=== PATIENT | male | born 1940 | race Caucasian/White ===

== ENCOUNTER 2019-03-27 06:33 | Emergency (ER) | payer OTHER ==
[~2019-03-27] VITALS: Ht 182.9 cm; Wt 90.7 kg
[~2019-03-27 06:33] MED LIST: ACET325 PO; ACET650SUP PR; ASPI325 PO; ASPI325EC PO; ASPI81CH PO; BP MED; CEFTRIAXONE 2 GM; CHLO25B PO; CHOL10002 PO; CHOLESTEROL MED; CITA20 PO; CLOB.05TC TP; CYAN1000 PO; Cerovite Silve1 EACH PO; DOCU100 PO; ENOX30I SUBQ; FERR160 PO; HTN MED; HYDACE5 PO; IBUP600 PO; LAVAP17G PO; LISI20 PO; LISI5 PO; LORA.5 PO; METO25 PO; METO25ER PO; MIRT15 PO; MULVITMINF; NICOTINE PATCH; PANT40 PO; POLY17UD PO; POTA10T PO; RXHYD5325 PO; SENN187 PO; SIMV10 PO; SIMV40 PO
[2019-03-27] MEDS ORDERED: LORA.5 PO (06:50)
[2019-03-27 06:58] LABS: BASOPHILS ABSOLUTE AUTO 0.01 K/mm3 (0.00-0.23); BASOPHILS PERCENT AUTO 0 % (0-2); EOSINOPHILS ABSOLUTE AUTO 0.02 K/mm3 (0.00-0.68); EOSINOPHILS PERCENT AUTO 0 % (0-6); Hematocrit 37.7 % (37.0-53.0); IMMATURE GRAN ABSOLUTE AUTO 0.01 K/mm3 (0.00-0.10); IMMATURE GRAN PERCENT AUTO 0 % (0-1); LYMPHOCYTES ABSOLUTE AUTO 1.22 K/mm3 (0.84-5.20); LYMPHOCYTES PERCENT AUTO 14 % (21-46); MONOCYTES ABSOLUTE AUTO 0.88 K/mm3 (0.16-1.47); MONOCYTES PERCENT AUTO 10 % (4-13); Mean Corpuscular HGB 31.6 pg (26.0-34.0); Mean Corpuscular HGB Conc 31.8 g/dL (31.5-36.5); Mean Corpuscular Volume 99 fL (80-100); NEUTROPHILS ABSOLUTE AUTO 6.64 K/mm3 (1.96-9.15); NEUTROPHILS PERCENT AUTO 76 % (41-73); Platelet Count 250 K/mm3 (150-400); RDW Coefficient Variation 12.8 % (11.7-14.2); RDW Standard Deviation 46.5 fL (35.1-46.3); White Blood Cell Count 8.78 K/mm3 (4.00-11.30)
[2019-03-27 07:20] LABS: Albumin, Blood 3.5 g/dL (3.4-5.0); Albumin/Globulin Ratio 0.9 (0.8-1.8); Bilirubin, Total 0.4 mg/dL (0.1-1.0); Bun/Creatinine Ratio 17.4 (12.0-20.0); Calcium, Blood 8.4 mg/dL (8.5-10.1); Creatinine, Blood 1.38 mg/dL (0.60-1.20); Globulin, Blood 3.8 g/dL (2.2-4.0); Potassium, Blood 4.6 mmol/L (3.5-5.5); Total Protein, Blood 7.3 g/dL (6.4-8.2)
== END 2019-03-27 11:37 | disposition short-term general hospital (02) ==
LOC: ER 06:33
PROVIDERS: Emergency Medicine
DX: R33.9 Retention of urine, unspecified (principal); R31.9 Hematuria, unspecified; Z88.8 Allergy status to other drugs, medicaments and biological substances; Z88.6 Allergy status to analgesic agent; Z88.1 Allergy status to other antibiotic agents; Z88.2 Allergy status to sulfonamides; Z79.899 Other long term (current) drug therapy
CPT/HCPCS: 51701; 51702; 51703; 51798; 71046; 80053; 85025; 94640; 96360-59; 99285-25; J7030

== ENCOUNTER 2019-03-27 15:47 | Emergency (ER) | payer OTHER ==
[~2019-03-27] VITALS: Ht 182.9 cm; Wt 90.7 kg
== END 2019-03-27 17:02 | disposition home or self-care (01) ==
LOC: ER 15:47
DX: R33.9 Retention of urine, unspecified (principal); R31.9 Hematuria, unspecified; Z88.8 Allergy status to other drugs, medicaments and biological substances; Z88.6 Allergy status to analgesic agent; Z88.1 Allergy status to other antibiotic agents; Z88.2 Allergy status to sulfonamides; Z79.899 Other long term (current) drug therapy; I10 Essential (primary) hypertension; Z86.73 Personal history of transient ischemic attack (TIA), and cerebral infarction without residual deficits; Z87.891 Personal history of nicotine dependence
CPT/HCPCS: 99282

== ENCOUNTER 2019-04-03 21:05 | Emergency (ER) | payer OTHER ==
[~2019-04-03] VITALS: Ht 182.9 cm; Wt 81.7 kg
[2019-04-03 21:33] LABS: Source, Urine Catheter
[2019-04-03 21:37] LABS: BASOPHILS ABSOLUTE AUTO 0.03 K/mm3 (0.00-0.23); BASOPHILS PERCENT AUTO 0 % (0-2); EOSINOPHILS ABSOLUTE AUTO 0.21 K/mm3 (0.00-0.68); EOSINOPHILS PERCENT AUTO 2 % (0-6); Hematocrit 34.1 % (37.0-53.0); Hemoglobin 10.6 g/dL (13.5-17.5); IMMATURE GRAN ABSOLUTE AUTO 0.09 K/mm3 (0.00-0.10); IMMATURE GRAN PERCENT AUTO 1 % (0-1); LYMPHOCYTES ABSOLUTE AUTO 2.24 K/mm3 (0.84-5.20); LYMPHOCYTES PERCENT AUTO 17 % (21-46); MONOCYTES ABSOLUTE AUTO 1.28 K/mm3 (0.16-1.47); MONOCYTES PERCENT AUTO 10 % (4-13); Mean Corpuscular HGB Conc 31.1 g/dL (31.5-36.5); Mean Corpuscular Volume 103 fL (80-100); Mean Platelet Volume 9.9 fL (9.1-12.4); NEUTROPHILS ABSOLUTE AUTO 9.48 K/mm3 (1.96-9.15); NEUTROPHILS PERCENT AUTO 71 % (41-73); Platelet Count 366 K/mm3 (150-400); RDW Coefficient Variation 12.6 % (11.7-14.2); RDW Standard Deviation 48.2 fL (35.1-46.3); Red Blood Cell Count 3.31 M/mm3 (4.30-5.90); White Blood Cell Count 13.33 K/mm3 (4.00-11.30)
[2019-04-03 21:38] LABS: Appearance, Urine Cloudy (Clear); Blood, Urine 5+ (Neg); Color, Urine Amber (P-Yellow); Glucose Qualitative, Urine Neg (Neg); Ketones, Urine 1+ (Neg); Leukocyte Esterase, Urine 3+ (Neg); Nitrite, Urine Pos (Neg); Protein, Urine 4+ (Neg); Specific Gravity, Urine 1.015 (1.003-1.022); Urobilinogen, Urine 1+ (Normal)
[2019-04-03 21:45] LABS: Bilirubin, Urine 1+ (Neg)
[2019-04-03 21:47] LABS: Bacteria Many /hpf; Red Blood Cells, Urine TNTC /hpf (0-2); Squamous Epithelial Cells Not Seen /hpf (Few); White Blood Cells, Urine TNTC /hpf (0-5)
[2019-04-03 21:57] LABS: Albumin, Blood 2.9 g/dL (3.4-5.0); Albumin/Globulin Ratio 0.6 (0.8-1.8); Bilirubin, Total 0.2 mg/dL (0.1-1.0); Bun/Creatinine Ratio 32.3 (12.0-20.0); Calcium, Blood 8.4 mg/dL (8.5-10.1); Creatinine, Blood 1.55 mg/dL (0.60-1.20); Globulin, Blood 4.6 g/dL (2.2-4.0); Potassium, Blood 4.5 mmol/L (3.5-5.5); Total Protein, Blood 7.5 g/dL (6.4-8.2)
[2019-04-03] MEDS ORDERED: LEVFLO500 PO (22:35)
== END 2019-04-03 23:55 | disposition home or self-care (01) ==
LOC: ER 21:05
PROVIDERS: Emergency Medicine
DX: T83.511A Infection and inflammatory reaction due to indwelling urethral catheter, initial encounter (principal); N39.0 Urinary tract infection, site not specified; I10 Essential (primary) hypertension; Z86.73 Personal history of transient ischemic attack (TIA), and cerebral infarction without residual deficits; Z87.891 Personal history of nicotine dependence; Z88.8 Allergy status to other drugs, medicaments and biological substances; Z88.2 Allergy status to sulfonamides; Z88.1 Allergy status to other antibiotic agents; Z88.6 Allergy status to analgesic agent; Z79.899 Other long term (current) drug therapy
CPT/HCPCS: 80053; 81001; 85025; 87077; 87086; 87186; 96365; 99283-25; J1956

== ENCOUNTER 2019-04-25 17:34 | Emergency (ER) | payer OTHER ==
[~2019-04-25] VITALS: Ht 182.9 cm; Wt 86.2 kg
[~2019-04-25 17:34] MED LIST changes: +LEVFLO500 PO
[2019-04-25] MEDS ORDERED: ACET500 PO (18:18)
== END 2019-04-25 19:36 | disposition home or self-care (01) ==
LOC: ER 17:34
DX: T83.021A Displacement of indwelling urethral catheter, initial encounter (principal); Z88.1 Allergy status to other antibiotic agents; Z88.8 Allergy status to other drugs, medicaments and biological substances; Z88.2 Allergy status to sulfonamides; Z79.899 Other long term (current) drug therapy; D64.9 Anemia, unspecified; J44.9 Chronic obstructive pulmonary disease, unspecified; Z86.73 Personal history of transient ischemic attack (TIA), and cerebral infarction without residual deficits; E78.5 Hyperlipidemia, unspecified; I10 Essential (primary) hypertension; F32.9 Major depressive disorder, single episode, unspecified; Z87.891 Personal history of nicotine dependence
CPT/HCPCS: 51702; 99283

== ENCOUNTER 2019-09-17 21:23 | Inpatient (IN) | payer OTHER ==
[~2019-09-17] VITALS: Ht 180.3 cm; Wt 84.3 kg
[~2019-09-17 21:23] MED LIST changes: +ACET500 PO
[2019-09-17] MEDS ORDERED: BENADRYL25 MG PO (21:57)
[2019-09-17 22:48] LABS: BASOPHILS ABSOLUTE AUTO 0.02 K/mm3 (0.00-0.23); BASOPHILS PERCENT AUTO 0 % (0-2); EOSINOPHILS PERCENT AUTO 3 % (0-6); Hemoglobin 11.1 g/dL (13.5-17.5); IMMATURE GRAN ABSOLUTE AUTO 0.02 K/mm3 (0.00-0.10); IMMATURE GRAN PERCENT AUTO 0 % (0-1); LYMPHOCYTES ABSOLUTE AUTO 3.84 K/mm3 (0.84-5.20); LYMPHOCYTES PERCENT AUTO 40 % (21-46); MONOCYTES ABSOLUTE AUTO 0.87 K/mm3 (0.16-1.47); MONOCYTES PERCENT AUTO 9 % (4-13); Mean Corpuscular HGB 31.4 pg (26.0-34.0); Mean Corpuscular HGB Conc 30.8 g/dL (31.5-36.5); Mean Corpuscular Volume 102 fL (80-100); NEUTROPHILS ABSOLUTE AUTO 4.49 K/mm3 (1.96-9.15); NEUTROPHILS PERCENT AUTO 47 % (41-73); Platelet Count 314 K/mm3 (150-400); RDW Standard Deviation 48.1 fL (35.1-46.3); Red Blood Cell Count 3.53 M/mm3 (4.30-5.90); White Blood Cell Count 9.54 K/mm3 (4.00-11.30)
[2019-09-17 23:02] LABS: Acetaminophen, Random <2.0 ug/mL (10.0-30.0); Alanine Aminotransfer (ALT/SGP 25 U/L (12-78); Albumin, Blood 3.1 g/dL (3.4-5.0); Albumin/Globulin Ratio 0.8 (0.8-1.8); Alk Phos 107 U/L (50-136); Anion Gap 4 mmol/L (6-16); Aspartate Aminotrans (AST/SGOT 13 U/L (12-37); Bilirubin, Total 0.2 mg/dL (0.1-1.0); Blood Urea Nitrogen 34 mg/dL (8-24); CO2, Blood 25 mmol/L (21-32); Calcium, Blood 8.4 mg/dL (8.5-10.1); Chloride, Blood 113 mmol/L (98-108); Creatinine, Blood 1.48 mg/dL (0.60-1.20); Globulin, Blood 3.9 g/dL (2.2-4.0); Glomerular Filtration Rate 49 (60-); Glucose, Blood 113 mg/dL (70-99); Magnesium, Blood 1.8 mg/dL (1.6-2.4); Potassium, Blood 5.2 mmol/L (3.5-5.5); Salicylate <1.7 mg/dL (2.8-20.0); Sodium, Blood 142 mmol/L (136-145); Troponin I <0.015 ng/mL (0.000-0.040)
[2019-09-17 23:03] LABS: Ethanol (Alcohol), Blood, Med <3 mg/dL
[2019-09-17 23:05] LABS: Calcium, Ionized (POC) 1.14 mmol/L (1.10-1.46); Chloride (POC) 108 mmol/L (98-108); Creatinine (POC) 1.7 mg/dL (0.8-1.3); Glucose (ISTAT POC) 128 mg/dL (70-99); Hemoglobin (POC) 9.9 g/dL (13.5-17.5); Potassium (POC) 4.9 mmol/L (3.5-5.5); Sodium (POC) 141 mmol/L (135-148); Total CO2 (POC) 24 mmol/L (21-32)
[2019-09-17 23:42] LABS: PCO2 Arterial 39.5 mmHg (35-45); PO2 Arterial 88.3 mmHg (80-100); pH Blood Arterial 7.37 (7.35-7.45)
[2019-09-17 23:48] LABS: Source, Urine Clean Catch
[2019-09-17 23:51] LABS: Appearance, Urine Cloudy (Clear); Bilirubin, Urine Neg (Neg); Blood, Urine 4+ (Neg); Color, Urine Yellow (P-Yellow); Glucose Qualitative, Urine Neg (Neg); Ketones, Urine Neg (Neg); Leukocyte Esterase, Urine 3+ (Neg); Nitrite, Urine Neg (Neg); Protein, Urine 3+ (Neg); Urobilinogen, Urine NORM (Normal)
[2019-09-17 23:58] LABS: Bacteria Many /hpf; Red Blood Cells, Urine 0-2 /hpf (0-2); Squamous Epithelial Cells Not Seen /hpf (Few); White Blood Cells, Urine TNTC /hpf (0-5)
[2019-09-18 00:08] LABS: U Amphetamine Screen Not Detected; U Barbituate Screen Not Detected; U Benzodiazapine Screen Not Detected; U Buprenorphine Screen Not Detected; U Cannabinoids Screen Not Detected; U Cocaine Screen Not Detected; U Methadone Screen Not Detected; U Methamphetamine Screen Not Detected; U Opiates Screen Not Detected; U Oxycodone Screen Not Detected; U Phencyclidine Screen Not Detected; U Propoxyphene Screen Not Detected
[2019-09-18] MEDS ORDERED: G-FENESIN400 MG PO (03:00)
--- NOTE | 2019-09-18 03:00 | NUR ---
PT TO ICU 12 FROM ED AT 0035 . PT ARRIVED VENTED WITH VENT SETTINGS AC 16/450/5/30%. PT IS REQUIRING NO SEDATION AND IS UNRESPONSIVE TO VERBAL OR PAINFUL STIMULI AT THIS TIME, PUPILS 1 MM WITH BRISK RESPONSE. PT APPEARS FLACCID, SMELLS STRONGLY OF URINE, AND HAS PRESSURE ULCER ON BUTTOCKS/COCCYX AND ABRASION TO RIGHT BUTTOCK (SEE PICTURES IN CHART), ADDITIONAL SCABS LOCATED BILATERAL UPPER THIGHT. PT HYPOTENSIVE ON ARRIVAL. 3 OF 3 L LR BOLUS STARTED. FINANCE CONSULTANT CONSULTED FOR CENTRAL LINE PLACEMENT AND PRESSOR SUPPORT. DR. HICKS AT BEDSIDE AT [address] RIGHT IJ CENTRAL LINE. LEVOPHED STARTED AT 10 MCG/MIN, ORDER TO BEGIN VASOPRESSIN NEEDED. GOAL TO MAINTAIN MAP>65. CALL PLACED TO [facility] REGARDING PT'S POLST OR ADVANCED DIRECTIVE. PER HEATING REPAIR TECHNICIAN "DELBERT", "HARD COPY OF ADVANCED DIRECTIVE WAS GIVEN TO EMS AND THEY ARE NO LONGER ABLE TO LOCATE IT". FACILITY CONFIRMS PT IS DNR STATUS BUT IS UNABLE TO FAX DOCUMENTATION TO SUPPORT CODE STATUS. PER DR. HICKS, PT WILL BE CHANGED TO DNR STATUS FOLLOWING RECEIPT OF ADVANCED DIRECTIVE/POLST. [facility] M[facility] STATES THAT MAILING MACHINE ASSISTANT CONTACTED PT'S FAMILY AND THEY WERE UPDATED REGARDING SITUATION, PT'S STATUS AND TRANSPORT TO [facility]. PT HYPOTHERMIC ON ARRIVAL WITH CORE TEMP OF 95.3, AJ HUGGER PLACED ON PATIENT WELL WARM BLANKETS TO INCREASE TEMP. TEMP ROJAS IN PLACE DRAINING TURBID URINE. SEE FULL ADMISSION ASSESSMENT
[2019-09-18] MEDS ORDERED: HYDCOR2.5C PR (03:02)
[2019-09-18] MEDS ORDERED: Anti-Diarrheal2 MG PO (03:04)
[2019-09-18] MEDS ORDERED: MILK OF MA400 MG/5 M PO (03:04)
[2019-09-18] MEDS ORDERED: Pedi-Dri 100,0060 GM TOP (03:08)
[2019-09-18] MEDS ORDERED: BISM87SU PO (03:11)
[2019-09-18 03:57] LABS: BASOPHILS ABSOLUTE AUTO 0.02 K/mm3 (0.00-0.23); BASOPHILS PERCENT AUTO 0 % (0-2); EOSINOPHILS ABSOLUTE AUTO 0.06 K/mm3 (0.00-0.68); EOSINOPHILS PERCENT AUTO 1 % (0-6); Hematocrit 31.2 % (37.0-53.0); Hemoglobin 9.7 g/dL (13.5-17.5); IMMATURE GRAN ABSOLUTE AUTO 0.03 K/mm3 (0.00-0.10); IMMATURE GRAN PERCENT AUTO 0 % (0-1); LYMPHOCYTES ABSOLUTE AUTO 2.09 K/mm3 (0.84-5.20); LYMPHOCYTES PERCENT AUTO 17 % (21-46); MONOCYTES ABSOLUTE AUTO 0.81 K/mm3 (0.16-1.47); MONOCYTES PERCENT AUTO 7 % (4-13); Mean Corpuscular HGB 31.6 pg (26.0-34.0); Mean Corpuscular HGB Conc 31.1 g/dL (31.5-36.5); Mean Corpuscular Volume 102 fL (80-100); Mean Platelet Volume 9.3 fL (9.1-12.4); NEUTROPHILS PERCENT AUTO 75 % (41-73); Platelet Count 287 K/mm3 (150-400); RDW Standard Deviation 49.1 fL (35.1-46.3); Red Blood Cell Count 3.07 M/mm3 (4.30-5.90); White Blood Cell Count 12.01 K/mm3 (4.00-11.30)
[2019-09-18 04:11] LABS: Bun/Creatinine Ratio 21.6 (12.0-20.0); Calcium, Blood 7.7 mg/dL (8.5-10.1); Creatinine, Blood 1.53 mg/dL (0.60-1.20); Potassium, Blood 5.1 mmol/L (3.5-5.5)
--- NOTE | 2019-09-18 06:12 | NUR ---
SHIFT SUMMARY PT REMAINS ON VENT SETTINGS AC 16/450/5/30%. LEVOPHED AT 10 MCG/MIN AND VASOPRESSIN @ 0.04 UNITS/MIN. PT RESPONDS TO PAINFUL STIMULI WITH FACIAL GRIMACING BUT FAILS TO OPEN EYES OR FOLLOW COMMANDS. PROPOFOL STARTED @ 25 MCG/KG/MIN D/T PT ALARMING VENT. PT NSR-SIT WITH HR 80-130'S. POISON CONTROL CALLED FOR UPDATE, SUGGEST SUPPORTIVE CARE AND WILL CONTINUE TO FOLLOW UP ON PT'S PROGRESS. AJ HUGGER TURNED OFF PT'S TEMP CURRENTLY 98.9. 300 ML TURBID URINARY OUTPUT. PLEASE SEE ADMISSION NOTE. WILL REPORT TO [facility] NURSE.
--- NOTE | 2019-09-18 07:30 | NUR ---
ASSUMED CARE: REPORT RECEIVED FROM RUIZ Ozuna RN. ASSUMED CARE OF THIS PT AT APPROX 0700. ON ASSESSMENT, THE PT IS INTUBATED & SEDATED W/ PROPOFOL. HE WITHDRAWS/ GRIMACES TO PAINFUL STIMULI BUT IS OTHERWISE NOT PURPOSEFUL IN MOVEMENTS. BILAT SOFT WRIST RESTRAINTS REMAIN IN PLACE TO PREVENT ACCIDENTAL SELF-EXTUBATION. PUPILS 1MM & MINIMALLY RESPONSIVE TO LIGHT. LS ARE CLEAR T/O, PT ON VENTILATOR W/ SETTINGS: AC 16, TV 450, PEEP 5 & FIO2 30%. O2 SATS > 92%. MONITOR SHOWS NSR W/ HR 70s, VASOPRESSIN & LEVOPHED FOR BP CONTROL, TITRATION OF MEDS IN FLOWSHEET. ABD MILDLY DISTENDED BUT SOFT, NO GRIMACE TO PALPATION, OGT IN PLACE & CLAMPED. TEMP ROJAS PATENT/ DRAINING YELLOW TURBID URINE. PT's TEMPERATURE NOW MORE STABLE, AJ HUGGER REMOVED & TEMP MAINTAINING 97.2-97.5. SKIN OVERALL INTACT, WOUNDS DOCUMENTED IN ASSESSMENT, MEPILEX TO COCCYX. WILL CONTINUE TO MONITOR & UPDATE NEEDED.
--- NOTE | 2019-09-18 08:57 | NUR ---
POISON CENTER: CALL FROM DESMOND AT POISON CENTER. UPDATED VS & MED REGIMEN HAVE BEEN PROVIDED. SHE STS TO CONTINUE W/ CURRENT POC & MONITOR FOR WIDENING QRS.
--- NOTE | 2019-09-18 09:25 | NUR ---
FAMILY UPDATE: CALL FROM SERAFIN WASHINGTON, WHO IS ONE OF PT's EMERGENCY CONTACTS ON PAPERWORK FROM [facility]. SHE STS THAT THE LAST UPDATE SHE RECEIVED WAS THAT THE PT HAD BEEN TRANSPORTED TO THE ED FROM [facility] AFTER INGESTING THE INCORRECT PT's MEDICATIONS. UPDATED HER ON PT's CURRENT STATUS, MEDS THAT PT RECEIVED IN ERROR AT [facility] & POSSIBLE SIDE EFFECTS OF THOSE MEDS. SHE STS THAT SOMEONE ELSE FROM THEIR FAMILY WILL BE IN LATER TODAY TO SEE THE PT. WILL CONTINUE TO MONITOR & UPDATE NEEDED.
--- NOTE | 2019-09-18 10:10 | NUR ---
DR COOPER: PROVIDER AT BEDSIDE TO EVAL PT. STS CONTINUE CURRENT POC W/ ANTICIPATION THAT ONCE MEDS HAVE WORN OFF, PT WILL BE MORE AWAKE & MAY BE EXTUBATED. TITRATE PRESSORS DOWN ABLE. NO OTHER CHANGES AT THIS TIME. WILL CONTINUE TO MONITOR & UPDATE NEEDED.
--- NOTE | 2019-09-18 12:33 | NUR ---
CUFF LEAK: CUFF LEAK NOTED ON NOON REASSESSMENT. O2 SATS > 95%, ETT POSITION UNCHANGED, BILAT BREATH SOUNDS AUSCULTATED. TV < 450 NOTED & VENT NOW ALARMING. LEEANNA Rodriguez RT, NOTIFIED OF THIS & 2 CC AIR ADDED TO ETT CUGG. LEAK RESOLVED & TV > 450 AGAIN.
--- NOTE | 2019-09-18 16:21 | NUR ---
SHIFT SUMMARY: PT MORE AWAKE THIS AFTERNOON, ATTEMPTS TO OPEN EYES IN RESPONSE TO HIS NAME BEING SAID. HE IS MOVING R SIDE MORE NOW, L SIDE WEAKNESS AT BASELINE R/T HX CVA. HE IS NOT CURRENTLY FOLLOWING DIRECTION, BUT APPEARS MORE PURPOSEFUL IN MOVEMENT, REACHING TOWARD THE ETT WHEN RESTRAINT REMOVED FROM R WRIST. LS REMAIN CLEAR T/O, VENT SETTINGS: AC12, TV 450, PEEP 5 & FIO2 25%, O2 SATS > 95%. MONITOR SHOWS SR W/ HR 70s. BP MORE STABLE, REQUIRING LESS LEVOPHED, VASOPRESSIN PLACED ON STANDBY AT APPROX 1420. OGT REMAINS CLAMPED, TEMP ROJAS PATENT/ DRAINING YELLOW, TURBID URINE. SKIN UNCHANGED, Q2H REPOSITIONING TO MAINTAIN SKIN INTEGRITY. WILL CONTINUE TO MONITOR & REPORT OFF TO ONCOMING RN.
--- NOTE | 2019-09-18 20:17 | NUR ---
ASSUMED CARE OF PT, REPORT RCV'D FROM MIRTA Almonte RN. PT INTUBATED AND SEDATED. VENT SETTINGS AC 16/450/5/25%. PROPOFOL INFUSING AT 25 MCG/KG/MIN, PT SEDATED BUT RESPONSIVE TO PAINFUL STIMULI. PT EXHIBITS FACIAL GRIMACING, MOVED RIGHT HAND AND RIGHT FOOT BUT FAILS TO FOLLOW COMMANDS. PT HAS LEFT SIDED UPPER/LOWER DEFICITS D/T HX OF CVA. LEFT HAND CONTRACTED AND LEFT ARM STIFF. OGT CLAMPED. TEMP ROJAS PATENT DRAINING TURBID YELLOW URINE. SCANT AMOUNT OF BLOOD NOTICED AROUND THE MEATUS, CATH CARE PERFORMED. LEPHOPHED INFUSING AT 4 MCG/MIN TO MAINTAIN MAP>65, VASOPRESSIN ON STANDBY. SEE FULL SHIFT ASSESSMENT.
[2019-09-19 03:44] LABS: BASOPHILS ABSOLUTE AUTO 0.02 K/mm3 (0.00-0.23); BASOPHILS PERCENT AUTO 0 % (0-2); EOSINOPHILS ABSOLUTE AUTO 0.13 K/mm3 (0.00-0.68); EOSINOPHILS PERCENT AUTO 1 % (0-6); Hematocrit 30.4 % (37.0-53.0); Hemoglobin 9.5 g/dL (13.5-17.5); IMMATURE GRAN ABSOLUTE AUTO 0.02 K/mm3 (0.00-0.10); IMMATURE GRAN PERCENT AUTO 0 % (0-1); LYMPHOCYTES ABSOLUTE AUTO 2.43 K/mm3 (0.84-5.20); LYMPHOCYTES PERCENT AUTO 23 % (21-46); MONOCYTES ABSOLUTE AUTO 1.05 K/mm3 (0.16-1.47); MONOCYTES PERCENT AUTO 10 % (4-13); Mean Corpuscular HGB 31.7 pg (26.0-34.0); Mean Corpuscular HGB Conc 31.3 g/dL (31.5-36.5); Mean Corpuscular Volume 101 fL (80-100); Mean Platelet Volume 9.5 fL (9.1-12.4); NEUTROPHILS ABSOLUTE AUTO 6.97 K/mm3 (1.96-9.15); NEUTROPHILS PERCENT AUTO 66 % (41-73); Platelet Count 285 K/mm3 (150-400); RDW Coefficient Variation 13.2 % (11.7-14.2); RDW Standard Deviation 48.6 fL (35.1-46.3); White Blood Cell Count 10.62 K/mm3 (4.00-11.30)
[2019-09-19 03:58] LABS: Bun/Creatinine Ratio 18.9 (12.0-20.0); Calcium, Blood 8.1 mg/dL (8.5-10.1); Creatinine, Blood 1.75 mg/dL (0.60-1.20); Potassium, Blood 4.8 mmol/L (3.5-5.5)
--- NOTE | 2019-09-19 06:03 | NUR ---
SHIFT SUMMARY PT REMAINS INTUBATED WITH VENT SETTINGS AC 16/450/5/25%. SEDATED WITH PROPOFOL 15 MCG/KG/MIN. LEVOPHED CURRENTLY AT 4 MCG/MIN, ATTEMPTS TO TITRATE LEVOPHED DOWN RESULTED IN HYPOTENSION. WHILE SEDATED PT RESPONDED TO NOXIOUS STIMULI WITH FACIAL GRIMACE ONLY. PT PLACED ON SEDATION VACATION FROM [id number]. DURING THIS TIME LEVOPHED WAS PLACED ON STANDBY AND PT WAS ABLE TO MAINTAIN MAP>65. OFF OF SEDATION PT STILL FAILED TO FOLLOW COMMANDS, KNOWING PT'S EXTENSIVE NEUROLOGIC HX IT IS UNKNOWN WHAT PT'S BASELINE COGNITION AT THIS TIME. PT MOVES RIGHT UPPER/LOWER EXTREMETIES AND APPEARS TO TRY TO REACH FOR THE TUBE. WHEN ASKED TO SQUEEZE RIGHT HAND PT FAILS TO PURPOSEFULLY DO SO. PROPOFOL DOSAGE DECREASED FROM 25 MCG/KG/MIN TO 15 MCG/KG/MIN. PT HAS MODERATE AMOUNT OF THICK YELLOW/WHITE SPUTUM SUCTIONED FROM ETT. PT HAS STRONG PRODUCTIVE COUGH. URINE REMAINS TURBID WITH COPIOUS AMOUNTS OF SEDIMENT. PT HAD 750 ML URINARY OUTPUT THIS SHIFT. [facility]
--- NOTE | 2019-09-19 07:43 | NUR ---
ASSUMED CARE / SEDATION VACATION: REPORT RECEIVED FROM RUIZ Ozuna RN. ASSUMED CARE OF THIS PT AT APPROX 0700. ON ASSESSMENT, THE PT IS RESTING QUIETLY & SEDATED W/ PROPOFOL. HE ATTEMPTS TO OPEN EYES IN RESPONSE TO HIS NAME BEING SAID & IS PURPOSEFUL W/ MOVEMENTS, PULLING AT RESTRAINTS & REACHING FOR ETT WHEN UNRESTRAINED. R SIDE MOVING MORE THAN L SIDE EXTREMITIES, WHICH IS BASELINE FOR PT. LS ARE CLEAR T/O, VENT SETTINGS: AC 16, TV 450, PEEP 5 & FIO2 25%. PT HAS STRONG COUGH W/ MOD AMNTS THICK WHITE SPUTUM SUCTIONED FROM ETT. MONITOR SHOWS SR W/ HR 80s. BP STABLE W/ LEVOPHED TITRATION IN FLOWSHEET. OGT CLAMPED, TEMP ROJAS PATENT/ DRAINING TURBID YELLOW URINE. SEDATION VACATION STARTED AT 0720 W/ PROPOFOL ON STANDBY. VENT SETTINGS CHANGED TO SPONTANEOUS W/ PS 5, FIO2 25%. PT TOLERATING WELL W/ RR 13-16 & TV > 450. HE IS CURRENTLY CALM, OPENING EYES & FOLLOWING SOME DIRECTION, UNSURE OF BASELINE MENTATION R/T HX CVA. WILL CONTINUE TO MONITOR & UPDATE NEEDED.
--- NOTE | 2019-09-19 10:10 | NUR ---
DR CONKLIN: PROVIDER AT BEDSIDE TO EVAL PT. INFORMED HER OF PT's IMPROVED MENTATION & POSSIBILITY OF EXTUBATION TODAY. CONTINUE POC PER CLIPPER MACHINE, NO CHANGES. WILL CONTINUE TO MONITOR & UPDATE NEEDED.
--- NOTE | 2019-09-19 12:27 | NUR ---
EXTUBATION: PT EXTUBATED AT 1130 TO RA. HE IS TOLERATING THIS WELL W/ O2 SATS > 92%. AT BASELINE, PT IS QUIET, MOSTLY NONVERBAL & STOIC, PER REPORT OF NURSE AT [facility] THIS AM. HE IS CURRENTLY QUIET & ANSWERING YES/NO QUESTIONS W/ NODS.
--- NOTE | 2019-09-19 16:01 | NUR ---
ASSUMED CARE: RECEIVED REPORT FROM MIRTA BAJWA RN AT THIS TIME. PT IS NOW PCU STATUS AND CODE STATUS OF DNR. OT IS WORKING WITH THE PT AT THIS TIME. WILL CONTINUE TO MONITOR AND ASSESS FURTHER.
--- NOTE | 2019-09-19 17:45 | NUR ---
TRANSFERED TO PCU 2: PT TRANSFERED TO PCU AT THIS TIME. NO ACUTE DISTRESS NOTED. CENTRAL LINE WAS REMOVED AND NO S/S OF BLEEDING NOTED AT OR AROUND THE SITE. TRANSFERED TO PCU BED WITH 4 STAFF MEMBERS.
--- NOTE | 2019-09-19 18:00 | NUR ---
ASSUMED CARE PT ALERT TO SELF. PT NOT ANSWERING QUESTIONS AND MUMBLES. PER REPORT PT IS AT HIS BASELINE MENTATION. VS STABLE. HR NSR. O2 SATS REMAIN ABOVE 90% ON RA. BED ALARM ON. ROJAS PATENT AND DRAINING. WILL CONTINUE TO MONITOR AND REPORT TO ONCOMING RN.
--- NOTE | 2019-09-20 01:31 | NUR ---
09/19/191944 HS CARE GIVEN; FRESH ATTENDS APPLIED AND ROJAS CATHETER BAG CHANGED AND STRUNG THRU PANTS THAT WERE APPLIED TO PATIENT (SO THAT PATIENT WOULD NOT ATTEMPT TO REMOVE ROJAS CATHETER; ROJAS DRAINING DARK YELLOW FLUID WITH SEDIMENT; ALERT TO PERSON, SPEECH GARBLED AT TIMES, THOUGHT PROCESS DISORGANIZED
[2019-09-20 04:30] LABS: Albumin, Blood 2.6 g/dL (3.4-5.0); Anion Gap 5 mmol/L (6-16); Blood Urea Nitrogen 24 mg/dL (8-24); Bun/Creatinine Ratio 16.9 (12.0-20.0); CO2, Blood 25 mmol/L (21-32); Calcium, Blood 8.3 mg/dL (8.5-10.1); Chloride, Blood 112 mmol/L (98-108); Creatinine, Blood 1.42 mg/dL (0.60-1.20); Glomerular Filtration Rate 51 (60-); Glucose, Blood 81 mg/dL (70-99); Phosphorus, Blood 2.9 mg/dL (2.5-4.9); Potassium, Blood 4.2 mmol/L (3.5-5.5); Sodium, Blood 142 mmol/L (136-145)
--- NOTE | 2019-09-20 04:35 | NUR ---
SHIFT SUMMARY: 79 Y/O MALE RESTED COMFORTABLY ALL SHIFT; RESPOSITIONED EVERY 2 HOURS; ROJAS DRAINING CLOUDY YELLOW FLUID WITH SEDIMENT; WEARING ATTENDS DIAPERS; LEFT ARM/LEG FLACCID; ALERT TO PERSON ONLY, SPEECH GARBLED WITH THOUGHT PROCESS DISORGANIZED; PT REQUIRES ASSISTANCE WITH ALL ADLS; VITAL SIGNS STABLE; NO PAIN, NAUSEA OR SOB NOTED; SKIN WARM AND PINK; LUNG SOUNDS CLEAR THROUGHOUT; DNR STATUS; CONTACT PRECAUTIONS FOR ESBL IN URINE; PT COOPERATIVE WITH ALL CARE RENDERED BY NURSING STAFF; BED ALARM APPLIED, BED LOW POSITION WITH CALL LIGHT AT SIDE.
--- NOTE | 2019-09-20 11:46 | NUR ---
Spiritual care visit conducted. Patient is lying in bed and resting but quickly awakens to the sound of his name. Communication with patient is challenging, but patient is able to tell me that he is doing, "Okay" and to affirm with "Yes" when I asked patient if I could pray for him. He closed his eyes during the prayer and repeated, "Amen" at the conclusion of the prayer. I sat with patient for 10 minutes or so to provide a calming presence. I will continue to remain available to patient and family.
--- NOTE | 2019-09-20 13:04 | NUR ---
UPDATE PT ALERT TO SELF. PT ANSWERING YES OR NO TO QUESTIONS, BUT UNABLE TO UNDERSTAND ANY OTHER WORDS. VS STABLE. O2 SATS REMAIN ABOVE 90% ON RA. BP STABLE. HR NSR. DR. CONKLIN IN WITH ORDERS TO REMOVE ROJAS AND DISCHARGE BACK TO [facility]. REPORT CALLED TO [facility]. DISCHARGE FAXED. TRANSPORT TO BE HERE AT 1400 TO TAKE PT.
[2019-09-20] MEDS ORDERED: Vsl#3 Capsule1 EACH PO (13:26)
[2019-09-20] MEDS ORDERED: LEVO750 PO (13:27)
--- NOTE | 2019-09-20 14:34 | NUR ---
Discussed with child care attendant school, Xiomy. She states that she has spoken with the family. She does not believe this pt to be appropriate for hospice care at this time. Pt does have a comfort measures only POLST in place, but was intubated due to accidental overdose of medications at [facility]. Pt is going back to [facility], however, family may be wanting to get him placed somewhere else. Pt has prior stroke and dementia. 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 If pt returns to hospital, reevaluation for hospice care. Has chronic, indwelling gil catheter with increased visits to ER in the last 6 months.
== END 2019-09-20 14:08 | disposition home or self-care (01) | DRG 917 ==
LOC: ER 21:23 → ICUW 23:37 → PCU 09-19 17:49
PROVIDERS: Emergency Medicine; Internal Medicine; Internal Medicine Critical Care Medicine; ADMIT Family Medicine
PROC: 0BH17EZ Insertion of Endotracheal Airway into Trachea, Via Natural or Artificial Opening (ICD-10-PCS; principal; 2019-09-17)
PROC: 5A1945Z Respiratory Ventilation, 24-96 Consecutive Hours (ICD-10-PCS; 2019-09-17)
PROC: 3E033XZ Introduction of Vasopressor into Peripheral Vein, Percutaneous Approach (ICD-10-PCS; 2019-09-17)
DX: T43.501A Poisoning by unspecified antipsychotics and neuroleptics, accidental (unintentional), initial encounter (principal); G92 Toxic encephalopathy; J96.01 Acute respiratory failure with hypoxia; K55.21 Angiodysplasia of colon with hemorrhage; N39.0 Urinary tract infection, site not specified; I69.354 Hemiplegia and hemiparesis following cerebral infarction affecting left non-dominant side; T88.6XXA Anaphylactic reaction due to adverse effect of correct drug or medicament properly administered, initial encounter; T42.71XA Poisoning by unspecified antiepileptic and sedative-hypnotic drugs, accidental (unintentional), initial encounter; Y92.9 Unspecified place or not applicable; B96.1 Klebsiella pneumoniae [K. pneumoniae] as the cause of diseases classified elsewhere; J44.9 Chronic obstructive pulmonary disease, unspecified; G30.9 Alzheimer's disease, unspecified; F02.80 Dementia in other diseases classified elsewhere, unspecified severity, without behavioral disturbance, psychotic disturbance, mood disturbance, and anxiety; F32.9 Major depressive disorder, single episode, unspecified; I12.9 Hypertensive chronic kidney disease with stage 1 through stage 4 chronic kidney disease, or unspecified chronic kidney disease; N18.3 Chronic kidney disease, stage 3 (moderate); D63.1 Anemia in chronic kidney disease; M19.90 Unspecified osteoarthritis, unspecified site; I95.9 Hypotension, unspecified; K21.9 Gastro-esophageal reflux disease without esophagitis
CPT/HCPCS: 31500; 31720; 36415; 36556; 36600; 51702; 70450; 71045; 80047; 80048; 80053; 80069; 81001; 82803; 83605; 83735; 84145; 84484; 85014; 85025; 87040; 87077; 87086; 87186; 93005; 93010; 94002; 94003; 94760; 97166; 97530; 99291-25; C1751; C9113; G0480; J1650; J1956; J2185; J2250; J2370; J2704; J3010; J7030; J7040; J7060; J7120